=== PATIENT | male | born 1970 | race Caucasian/White ===

== ENCOUNTER → 2021-04-21 15:46 | Outpatient (CLI) | payer BC, SELFPAY ==
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
--- NOTE | 2021-04-21 15:48 | XR_ITS ---
PROCEDURE: XR ORBIT BILATERAL MIN 4V CLINICAL INDICATION: MRI CLEARANCE COMPARISON: No exams were available for comparison FINDINGS: Single view of the orbits shows no radiopaque foreign body to preclude MRI. Paranasal sinuses are patent. IMPRESSION: No radiopaque foreign body in the orbits to preclude MRI. Dictated by: Robert Angela MD 04/21/2021 16:03 Robert Angela MD in [facility] 04/21/2021 16:03
== END ==
PROVIDERS: PCP Orthopaedic Surgery; Visit Provider Orthopaedic Surgery
DX: S46.012A Strain of muscle(s) and tendon(s) of the rotator cuff of left shoulder, initial encounter (principal); R29.898 Other symptoms and signs involving the musculoskeletal system; H05.53 Retained (old) foreign body following penetrating wound of bilateral orbits
CPT/HCPCS: 70200; 73221